=== PATIENT | male | born 1955 | race Caucasian/White ===

== ENCOUNTER 2018-03-24 17:52 | Emergency (ER) | payer OTHER ==
--- NOTE | 2018-03-24 17:56 | EDM.PDOC ---
<Cornell Hudson - Last Filed: 03/24/18 19:11> ED HPI GENERAL MEDICAL PROBLEM - General Stated Complaint: PT HAS DOG BITE Time Seen by Provider: 03/24/18 17:56 Source of Information: Reports: Patient - History of Present Illness INITIAL COMMENTS - FREE TEXT/NARRATIVE: Patient history and physical exam were discussed with Dr. Kinney who will be taking over care of this patient at 1910. - Related Data Allergies Allergy/AdvReac Type Severity Reaction Status Date / Time No Known Allergies Allergy Verified 03/24/18 18:15 Home Meds: Home Meds . [No Known Home Meds] 06/25/16 [History] Past Medical History - Past Health History Medical/Surgical History: Denies Medical/Surgical History Social & Family History - Family History Family Medical History: Noncontributory Course - Vital Signs Last Recorded V/S: Last Vital Signs Temp 98.0 F 03/24/18 18:16 Pulse 93 03/24/18 18:16 Resp 16 03/24/18 18:16 BP 134/93 H 03/24/18 18:16 Pulse Ox 97 03/24/18 18:16 - Orders/Labs/Meds Orders: Active Orders 24 hr Category Date Time Status Vaccines to be Administered [RC] PER UNIT ROUTINE Care 03/24/18 19:27 Active Vaccines to be Administered [RC] PER UNIT ROUTINE Care 03/24/18 19:51 Active Vaccines to be Administered [RC] PER UNIT ROUTINE Care 03/24/18 19:52 Active Bacitracin [Bacitracin Oint] Med 03/24/18 22:00 Active 1 gm TOP TID Medication Orders Bacitracin (Bacitracin Oint) 1 gm TOP TID VIC Meds: Medications Generic Name Dose Route Start Last Admin Trade Name Freq PRN Reason Stop Dose Admin Bacitracin 1 gm 03/24/18 22:00 Bacitracin Oint TOP TID VIC Discontinued Medications Generic Name Dose Route Start Last Admin Trade Name Freq PRN Reason Stop Dose Admin Bacitracin 1 dose 03/24/18 20:22 03/24/18 20:23 Bacitracin Oint 1 Gm TOP 03/24/18 20:23 1 dose ONETIME ONE Administration Bacitracin Confirm 03/24/18 20:20 Bacitracin Oint 1 Gm Administered 03/24/18 20:21 Dose 1 dose .ROUTE .STK-MED ONE Ceftriaxone Sodium 1,000 mg/ 4 mls @ 4 mls/sec 03/24/18 19:16 03/24/18 19:47 Lidocaine HCl IM 03/24/18 19:17 4 mls/sec ONETIME ONE Administration Rabies Immune Globulin 1,464 unit 03/24/18 19:16 03/24/18 19:51 Hyperrab S/D IM 03/24/18 19:17 Not Given ONETIME ONE Rabies Immune Globulin 1,464 unit 03/24/18 19:50 03/24/18 20:12 Imogam Rabies-Ht IM 03/24/18 19:51 1,464 unit .ONCE ONE Administration Rabies Immune Globulin 1,464 unit 03/24/18 19:51 03/24/18 20:12 Imogam Rabies-Ht IM 03/24/18 19:52 Not Given .ONCE ONE Rabies Vaccine 2.5 unit 03/24/18 19:27 03/24/18 19:48 Rabavert IM 03/24/18 19:28 2.5 unit .ONCE ONE Administration Departure - Departure Disposition: Home, Self-Care 01 Clinical Impression: Dog bite - Discharge Information Referrals: PCP,None [Primary Care Provider] - Additional Instructions: Medication as prescribed Rabies vaccination as scheduled per prescription to the cancer center before 5PM after 5 PM or weekends present to the ER admissions desk Return if symptoms persist or worsen or fever nausea vomiting chills sweats redness warmth or pus drainage should this develop would prompt return to emergency room Follow-up with primary care in 2 weeks sooner as needed [facility] - Primary [facility] [address] [place] [address] The following information is given to patients seen in the emergency department who are being discharged to home. This information is to outline your options for follow-up care. We provide all patients seen in our emergency department with a follow-up referral. The need for follow-up, as well as the timing and circumstances, are variable depending upon the specifics of your emergency department visit. If you don't have a primary care physician on staff, we will provide you with a referral. We always advise you to contact your personal physician following an emergency department visit to inform them of the circumstance of the visit and for follow-up with them and/or the need for any referrals to a consulting specialist. The emergency department will also refer you to a specialist when appropriate. This referral assures that you have the opportunity for follow-up care with a specialist. All of these measure are taken in an effort to provide you with optimal care, which includes your follow-up. Under all circumstances we always encourage you to contact your private physician who remains a resource for coordinating your care. When calling for follow-up care, please make the office aware that this follow-up is from your recent emergency room visit. If for any reason you are refused follow-up, please contact the [facility] emergency department at and asked to speak to the emergency department charge nurse. - My Orders Last 24 Hours: My Active Orders 03/24/18 19:27 Vaccines to be Administered [RC] PER UNIT ROUTINE 03/24/18 19:51 Vaccines to be Administered [RC] PER UNIT ROUTINE 03/24/18 19:52 Vaccines to be Administered [RC] PER UNIT ROUTINE 03/24/18 22:00 Bacitracin [Bacitracin Oint] 1 gm TOP TID - Assessment/Plan Last 24 Hours: My Active Orders 03/24/18 19:27 Vaccines to be Administered [RC] PER UNIT ROUTINE 03/24/18 19:51 Vaccines to be Administered [RC] PER UNIT ROUTINE 03/24/18 19:52 Vaccines to be Administered [RC] PER UNIT ROUTINE 03/24/18 22:00 Bacitracin [Bacitracin Oint] 1 gm TOP TID <Venkat Chandler - Last Filed: 03/24/18 20:25> ED HPI GENERAL MEDICAL PROBLEM - History of Present Illness INITIAL COMMENTS - FREE TEXT/NARRATIVE: HISTORY AND PHYSICAL: History of present illness: [ Patient presents post dog bite them unprovoked attack Since patient was in his backyard and their workup are all of [place] looking dog's in his backyard play straightaway for a period and his was working in the yard and 1 dog returned and is asking acting as if it were going to bite her she entered the house explained this to her he went out to investigate and the dog was there is return ago in the house the dog bit his heel] No fever nausea vomiting chills sweats Review of systems: As per history of present illness and below otherwise all systems reviewed and negative. Past medical history: As per history of present illness and as reviewed below otherwise noncontributory. Surgical history: As per history of present illness and as reviewed below otherwise noncontributory. Social history: No reported history of drug or alcohol abuse. Family history: As per history of present illness and as reviewed below otherwise noncontributory. Physical exam: HEENT: Atraumatic, normocephalic, pupils reactive, negative for conjunctival pallor or scleral icterus, mucous membranes moist, throat clear, neck supple, nontender, trachea midline. Lungs: Clear to auscultation, breath sounds equal bilaterally, chest nontender. Heart: S1S2, regular, negative for clicks, rubs, or JVD. Abdomen: Soft, nondistended, nontender. Negative for masses or hepatosplenomegaly. Negative for costovertebral tenderness. Pelvis: Stable nontender. Genitourinary: Deferred. Rectal: Deferred. Extremities: Atraumatic, negative for cords or calf pain. Neurovascular unremarkable. Neuro: Awake, alert, oriented. Cranial nerves II through XII unremarkable. Cerebellum unremarkable. Motor and sensory unremarkable throughout. Exam nonfocal. Diagnostics: [Clinical ] Therapeutics: [Status is up-to-date and on file Rabies immunoglobulin 20 mg/kg rabies vaccination initiated 1 g Rocephin IM Augmentin 875 by mouth twice a day #20 no refill Rabies vaccination prescription to follow through oncology department provided for further dosing day 3, 7 and 14 total of 4 doses ] Impression: [ unprovoked dog bite ] Definitive disposition and diagnosis as appropriate pending reevaluation and review of above. ED ROS GENERAL - Review of Systems Review Of Systems: ROS reveals no pertinent complaints other than HPI. ED EXAM, GENERAL - Physical Exam Exam: See Below Course - Orders/Labs/Meds Orders: Active Orders 24 hr Category Date Time Status Vaccines to be Administered [RC] PER UNIT ROUTINE Care 03/24/18 19:27 Active Vaccines to be Administered [RC] PER UNIT ROUTINE Care 03/24/18 19:51 Active Vaccines to be Administered [RC] PER UNIT ROUTINE Care 03/24/18 19:52 Active Bacitracin [Bacitracin Oint] Med 03/24/18 22:00 Active 1 gm TOP TID Medication Orders Bacitracin (Bacitracin Oint) 1 gm TOP TID VIC Departure - Departure Time of Disposition: 20:23 Condition: Good - My Orders Last 24 Hours: My Active Orders 03/24/18 19:27 Vaccines to be Administered [RC] PER UNIT ROUTINE 03/24/18 19:51 Vaccines to be Administered [RC] PER UNIT ROUTINE 03/24/18 19:52 Vaccines to be Administered [RC] PER UNIT ROUTINE 03/24/18 22:00 Bacitracin [Bacitracin Oint] 1 gm TOP TID - Assessment/Plan Last 24 Hours: My Active Orders 03/24/18 19:27 Vaccines to be Administered [RC] PER UNIT ROUTINE 03/24/18 19:51 Vaccines to be Administered [RC] PER UNIT ROUTINE 03/24/18 19:52 Vaccines to be Administered [RC] PER UNIT ROUTINE 03/24/18 22:00 Bacitracin [Bacitracin Oint] 1 gm TOP TID
[2018-03-24 18:25] VITALS: BP 134/93
[2018-03-24] MEDS ORDERED: cefTRIAXone 1,000 MG in Lidocaine 1% 4 ML IM ONE (19:16)
[2018-03-24] MEDS ORDERED: Rabies Immune Globulin PF 150 Units/ML 10 ML SDV IM ONE (19:16)
[2018-03-24] MEDS ORDERED: Rabies Vaccine (Avian) 2.5 Unit Inj Kit IM ONE (19:27)
[2018-03-24] MEDS ORDERED: Rabies Immune Globulin PF 150 Units/ML 2 ML SDV IM ONE ×2 (19:50→19:51)
[2018-03-24] MEDS ORDERED: Bacitracin Oint 1 GM U/D Packet ONE (20:20)
[2018-03-24] MEDS ORDERED: Bacitracin Oint 1 GM U/D Packet TOP ONE (20:22)
[2018-03-24] MEDS ORDERED: Bacitracin Oint 28.35 GM Tube TOP SCH (22:00)
== END 2018-03-24 20:32 | disposition home or self-care (01) ==
LOC: MW.ED 17:52
DX: S91.359A Open bite, unspecified foot, initial encounter (principal); W54.0XXA Bitten by dog, initial encounter; Z23 Encounter for immunization
CPT/HCPCS: 90376; 90471; 90472; 90675; 96372; 99283; J0696; J2001